=== PATIENT | male | born 1990 | race African-American/Black ===

== ENCOUNTER 2017-01-04 10:48 | Outpatient (CLI) ==
[2017-01-04 11:38] LABS: BASOPHILS % (AUTO) 0.6 % (0.0-3.0); EOSINOPHILS % (AUTO) 0.9 % (0.0-7.0); HEMATOCRIT 44.1 % (42.0-52.0); LYMPHOCYTES # (AUTO) 1.7 K/uL (0.60-3.4); LYMPHOCYTES % (AUTO) 53.6 (10.0-50.0); MEAN CORPUSCULAR HEMOGLOBIN 28.5 pg (27.0-31.0); MEAN CORPUSCULAR VOLUME 83.8 fl (80.0-94.0); MONOCYTES # (AUTO) 0.2 K/uL (0.4-2.0); MONOCYTES % (AUTO) 6.6 (0-10); NEUTROPHILS # (AUTO) 1.2 K/ul (2.0-6.9); NEUTROPHILS % (AUTO) 38.3; PLATELET COUNT 193 10^3/uL (140-440); RED BLOOD COUNT 5.26 10^6/ul (4.70-6.10); WHITE BLOOD COUNT 3.17 K/ul (4.2-10.2)
[2017-01-04 11:53] LABS: ALBUMIN 4.2 g/dL (3.4-5.0); ALBUMIN/GLOBULIN RATIO 1.11; BILIRUBIN,TOTAL 1.58 mg/dL (0.00-1.20); BUN/CREATININE RATIO 9.25; CALCIUM 9.3 mg/dL (8.2-10.2); CREATININE 1.08 mg/dL (0.60-1.10)
[2017-01-09 09:27] LABS: HIV ANTIBODIES QUALITATIVE NON REACTIVE (Nonreactive)
[2017-01-09 09:30] LABS: RAPID PLASMA REAGIN NON REACTIVE
== END 2017-01-04 10:49 | disposition home or self-care (01) ==
LOC: LAB 10:48
PROVIDERS: ATTEND Physician Assistant
DX: Z20.2 Contact with and (suspected) exposure to infections with a predominantly sexual mode of transmission (principal); Z20.6 Contact with and (suspected) exposure to human immunodeficiency virus [HIV]
CPT/HCPCS: 36415; 80053; 80074; 85025; 86592; 86695; 86696; 86701; 87800